=== PATIENT | female | born 1945 | race Caucasian/White ===

== ENCOUNTER 2021-01-09 08:22 | Inpatient (IN) | payer MEDICARE, SELFPAY ==
[2021-01-09] VITALS (23 sets, daily range): BP systolic 134–161; BP diastolic 80–122; PULSE 93–147; RESP 15–28; TEMP 36.1–36.8; O2SAT 94–99; BMI 28.7
--- NOTE | 2021-01-09 | ECHOL_ITS ---
Patient Info Name: Aster De Oliveira Age: 75 years : 1945 Gender: Female Ht: 66 in Wt: 177 lbs BSA: 1.95 m2 HR: 108 bpm BP: 145 / 96 mmHg Heart Rhythm: Atrial Flutter Technical Quality: Good Exam Date: 01/09/2021 4:39 PM Exam Location: [facility] Pulmonary Exam Room: 211 Patient Status: Inpatient Admit Date: 01/09/2021 Staff Ordering Physician: Vladislav Vázquez MD Certified Fraud Examiner: Lisa Simmons RDCS Attending Provider: Lisandro Fulton MD Referring Physician: Gurpreet CALLOWAY; Exam Type: CA echo limited Study Info Indications - ATRIAL FLUTTER Limited two-dimensional transthoracic echocardiogram is performed. Summary 1. Left ventricular chamber dimension is mildly enlarged. 2. Left ventricular systolic function is mildly reduced, estimated at 45-50%. 3. There is mildly increased left ventricular wall thickness. 4. Left atrial chamber dimension is severely enlarged. 5. Right atrial chamber dimension is mildly enlarged. 6. Doppler was not ordered or performed in this study but is recommended. Left Ventricle Left ventricular chamber dimension is mildly enlarged. Left ventricular systolic function is mildly reduced, estimated at 45-50%. There is mildly increased left ventricular wall thickness. Right Ventricle Right ventricular chamber dimension is normal. Right ventricular systolic function is normal. Left Atria Left atrial chamber dimension is severely enlarged. Right Atria Right atrial chamber dimension is mildly enlarged. Aortic Valve The aortic valve is not well visualized. Pulmonic Valve The pulmonic valve is not well visualized. Mitral Valve The mitral valve has thickened leaflets. Tricuspid Valve The tricuspid valve leaflets are normal. Other Findings Doppler was not ordered or performed in this study but is recommended. Pericardium/Pleural The pericardium appears normal. There is no pericardial effusion. Inferior Vena Cava Dilated inferior vena cava with <50% collapse upon inspiration consistent with elevated right atrial pressure, 15 mmHg. Aorta The aortic root size at the sinus of Valsalva is normal. Tricuspid Valve Name Value Normal Estimated PAP/RSVP RA Pressure 15 mmHg <=5 Ventricles Name Value Normal LV Dimensions 2D/MM IVS Diastolic Thickness (2D) 1.1 cm 0.6-1.0 LVID Diastole (2D) 5.0 cm 3.8-5.2 LVIW Diastolic Thickness (2D) 1.0 cm 0.6-0.9 LVID Systole (2D) 3.4 cm 2.2-3.5 LV Mass (2D Cubed) 189.52 g 67.00-162.00 LV Mass Index (2D Cubed) 97 g/m2 43-95 Relative Wall Thickness (2D) 0.38 LV Fractional Shortening/Ejection Fraction 2D/MM LV Fractional Shortening (2D) 33 % 27-45 LV EF (2D Shar)
--- NOTE | ~2021-01-09 | CT_ITS ---
EXAMINATION: CTA chest PE protocol DATE: 01/10/2021 14:27 CDT INDICATION: Severe dyspnea with exertion TECHNIQUE: Computed tomographic angiography (CTA) of the chest was performed with 100 mL Omnipaque-35 0 intravenous contrast. The dose-length product was 340.81 mGy-cm. Maximum intensity projection 3D-re constructions of the aorta and other arteries were constructed by the technologist on a separate work station. Automated exposure control and iterative reconstruction technique were employed. COMPARISON: None. FINDINGS: Study is technically adequate without evidence for pulmonary embolism. Cardiomegaly. Enlarg ed pulmonary arteries, compatible with pulmonary hypertension. Moderate bilateral pleural effusions. There is hazy diffuse bilateral groundglass opacification which may represent edema or pneumonia. No thoracic lymphadenopathy. No significant pericardial effusion. The upper abdomen is unremarkable. No pneumothorax. IMPRESSION: 1. Hazy diffuse bilateral groundglass opacification which may represent edema or pneumonia. 2: Moderate bilateral pleural effusions. Reviewed, dictated and finalized at location A. IMPRESSION: 1. Hazy diffuse bilateral groundglass opacification which may represent edema o r pneumonia. 2: Moderate bilateral pleural effusions.
--- NOTE | ~2021-01-09 | XR_ITS ---
EXAMINATION: XR chest 2V DATE: 01/09/2021 08:51 INDICATION: Shortness of breath, tachycardia TECHNIQUE: AP and lateral views of the chest are obtained. COMPARISON: 11/12/2012 FINDINGS: There are small pleural effusions. Minimal opacities are present in the lung bases. No pneu mothorax is identified. The cardiomediastinal silhouette is normal. There is mild thoracic spondylosi s. IMPRESSION: 1. Small pleural effusions. 2. Minimal bibasilar airspace opacity, consistent with atelectasis versus pneumonia. Reviewed, dictated and finalized at location A. IMPRESSION: 1. Small pleural effusions. 2. Minimal bibasilar airspace opacity, consistent with atelectasis versus pneum onia.
--- NOTE | 2021-01-09 08:31 | ECG_ITS ---
Measurements Intervals [place] Rate: 150 P: CA: 0 QRS: 12 QRSD: 93 T: 31 QT: 290 QTc: 459 Interpretive Statements ATRIAL FLUTTER/TACHYCARDIA WITH RAPID VENTRICULAR RESPONSE BASELINE WANDER- I, II, III ABNORMAL ECG Electronically Signed On 01-09-2021 8:39:12 CDT by Emerson Bravo D.O.
[2021-01-09] MEDS: ASPIRIN 81 MG CHEWABLE TABLET 324 MG PO (08:38)
[2021-01-09] MEDS: dilTIAZem HCl INJ 25 MG/5 ML VIAL 10 MG IV PUSH (08:38)
[2021-01-09 08:51] LABS: Basophils Percent Auto 0.6 % (0.2-1.2); Eosinophils Absolute Auto 0.1 K/mm3 (0-0.3); Eosinophils Percent Auto 1.2 % (0-4.4); Hematocrit 41.8 % (37.0-47.0); Hemoglobin 14.3 g/dL (12.0-15.0); Immature Granulocyte Absolute 0.01 K/mm3 (0.00-0.031); Immature Granulocyte Percent A 0.2 % (0-0.5); Lymphocytes Absolute Auto 1.61 K/mm3 (0.9-3.2); Lymphocytes Percent Auto 31.8 % (18.3-44.2); Mean Corpuscular HGB Conc 34.2 g/dl (32-36); Mean Corpuscular Volume 99.3 fl (80-100); Monocytes Absolute Auto 0.4 K/mm3 (0.1-0.6); Monocytes Percent Auto 8.1 % (2.6-8.5); Neutrophils Percent Auto 58.1 % (45.5-73.1); Platelet Count Result 205 k/mm3 (150-375); Red Blood Count 4.21 M/mm3 (4.2-5.4); Red Cell Distribution Width 13.1 % (11.5-14.5); White Blood Count 5.1 K/mm3 (4.5-10.0)
[2021-01-09 09:00] LABS: INR 0.9; Prothrombin Time 12.2 Seconds (11.1-14.7)
[2021-01-09 09:01] LABS: Partial Thromboplastin Time 25.7 SECONDS (22.3-36.8)
[2021-01-09 09:20] LABS: Anion Gap 6 mmol/L (8-16); Blood Urea Nitrogen 18 mg/dL (7-17); Calcium 9.5 mg/dL (8.4-10.2); Carbon Dioxide 30 mmol/L (22-30); Chloride 102 mmol/L (98-107); Estimated CRCL calculation 54 ml/min; Estimated Glomerular Filt Rate > 60; Glucose 113 mg/dL (65-110); Potassium 4.4 mmol/L (3.4-5.0); Sodium 138 mmol/L (137-145)
[2021-01-09 09:33] LABS: Troponin I < 0.012 ng/mL (0.000-0.034)
--- NOTE | 2021-01-09 10:02 | PC.NURSE ---
Dr. Collier ordered dilt drip and d/c drip d/t p HR 100-110s,
--- NOTE | 2021-01-09 10:17 | ED.SOB ---
HPI - SOB/Dyspnea General Chief Complaint: Shortness of Breath/Dyspnea Stated Complaint: irregular heart beat, sob Time Seen by Provider: 01/09/21 08:30 Source: patient History of Present Illness HPI Narrative: Patient reports not feeling well for the past 1 to 2 weeks. Reports she got her flu vaccine around that time intact up to a immunization reaction. Symptoms got progressively worse or more severe last night so she checked her heart rate noticed in the 140s. She attempted to rest at home checked her heart rate again this morning and it is in the 160s. She was concerned and came to the ER for evaluation. Reports she has been experiencing shortness of breath and fatigue for the past 2 weeks. She denies fevers, cough, chest pain or abdominal pain. She denies any nausea or vomiting. Reports she was concerned that she has A. fib. She does not carry a diagnosis of atrial fibrillation. Related Data Home Medications Medication Instructions Recorded Confirmed Daily Probiotic 1 cap PO DAILY 01/09/21 01/09/21 atorvastatin 20 mg PO DAILY 01/09/21 01/09/21 coenzyme Q10 [CoQ-10] 100 mg PO DAILY 01/09/21 01/09/21 escitalopram oxalate [Lexapro] 10 mg PO DAILY 01/09/21 01/09/21 esomeprazole magnesium [Nexium 20 mg PO DAILY 01/09/21 01/09/21 24HR] triamterene-hydrochlorothiazid 1 cap PO DAILY 01/09/21 01/09/21 Allergies Allergy/AdvReac Type Severity Reaction Status Date / Time No Known Allergies Allergy Unknown Verified 01/09/21 15:21 Review of Systems Review of Systems: CONSTITUTIONAL: Denies fever, chills, or sweats. EYES: Denies visual changes, redness, or discharge. ENT: Denies rhinorrhea, congestion, sore throat, or otalgia. CARDIOVASCULAR: Denies chest pain, palpitations, or edema. RESPIRATORY: Denies cough GASTROINTESTINAL: Denies abdominal pain, nausea, vomiting, or diarrhea. GENITOURINARY: Denies dysuria or hematuria. SKIN: Denies rash or itching. MUSCULOSKELETAL: Denies back pain, joint pain, or myalgia. NEUROLOGIC: Denies headache, numbness, dizziness, or weakness. PSYCHIATRIC: Denies anxiety or depression. All systems reviewed & are unremarkable except as noted in HPI and below PMFSH Social History Social History (Updated 01/09/21 @ 10:19 by Coleman Collier MD) Smoking packs per day: 1 Smoking cigarettes per day: 20.0 Years smoked: 20 Smoking pack-years: 20.00 Smoking status: Former smoker Tobacco type: cigarettes Alcohol intake: current Drinks per week: 7 Substance use: never Spiritual care concerns: No Exam Narrative: GENERAL: Well-appearing, well-nourished, and in no acute distress. HEAD: Normocephalic, atraumatic. EYES: PERRLA and EOMI. ENT: Nares clear, no rhinorrhea or epistaxis. Mucous membranes moist. NECK: Supple. No masses. No JVD CHEST: Clear to auscultation. No respiratory distress. No wheezes rales or rhonchi HEART: Regular tachycardia. No murmur heard. Diminished peripheral pulses ABDOMEN: Soft, nontender, nondistended, normal active bowel sounds. EXTREMITIES: Normal range of motion. No edema. SKIN: Warm, dry, no rash. NEURO: No focal deficits. Alert and oriented x3. PSYCH: Normal mood and affect. Course Reevaluation(s) Reevaluation #1: Patient heart rate improved after diltiazem. Discussed with hospitalist and cardiology patient will be admitted for new onset A. fib patient is comfortable with inpatient plan. Date: 01/09/21 Time: 10:19 Vital Signs Vital signs: Vital Signs Pulse Rate 143 H 01/09/21 08:27 Respiratory Rate 20 01/09/21 08:27 Blood Pressure 161/122 H 01/09/21 08:27 Pulse Oximetry 99 01/09/21 08:27 Temperature 36.1 C L 01/09/21 17:20 Pulse Rate 147 H 01/09/21 17:20 Respiratory Rate 22 H 01/09/21 17:20 Blood Pressure 161/97 H 01/09/21 17:20 Pulse Oximetry 94 01/09/21 17:20 MDM - SOB/Dyspnea MDM Narrative Medical decision making narrative: Patient presents with generalized fatigue and shortness of breath. Pat
[2021-01-09] MEDS: SODIUM CHLORIDE 0.9% IV 1,000 ML 125 ML IV CONT ×2 (10:49→19:31)
--- NOTE | 2021-01-09 11:42 | PC.NURSE ---
Pt transported with normal saline fluids at 125
[2021-01-09 12:22] LABS: Troponin I < 0.012 ng/mL (0.000-0.034)
[2021-01-09] MEDS: ENOXAPARIN 40 MG/0.4 ML SYRINGE SUB-Q (14:22)
[2021-01-09] MEDS: dilTIAZem HCL 30 MG TABLET PO (14:22)
--- NOTE | 2021-01-09 14:40 | ADMGEN ---
This patient, Aster De Oliveira, was admitted to IMU Room 211-01 on 01/09/21 at 1140. Patient/family oriented to hospital policies and general routines including ID bracelet, bed and alarms, visiting hours, pain management, procedures, bathroom and other care routines, personal items, smoking policy, room service/diet, and visiting hours. Information on how to activate the Rapid Response Team has been discussed. Patient/Family are encouraged to report perceived risks to care and to ask questions if they do not understand what they are told or what they should do.
[2021-01-09 15:18] LABS: Troponin I < 0.012 ng/mL (0.000-0.034)
--- NOTE | 2021-01-09 15:26 | PM.CNCAR ---
Assessment and Plan Additional Plan 75-year-old lady with: Atrial flutter with rapid ventricular response she gives a good history of the onset of this arrhythmia between 2 and 3 weeks ago. Obviously she is hemodynamically stable despite the atrial tachyarrhythmia. Reports a history of aortic valve regurgitation which sounds like is mild not of any great concern is actively being followed by her physician at [place]. She has background also of hypertension and apparently some mild dyslipidemia by her understanding. At this time I would recommend: Start metoprolol for rate control Start Xarelto for systemic anticoagulation Obtain an echocardiogram to assess the structural basis of this especially with her aortic valve insufficiency. Her AI is not audible on exam at this time Further recommendations to be pending her response to treatment and review of her echocardiogram. I would hope we can bring her rate under control and allow her to be discharged with plans to conduct a outpatient cardioversion after a sufficient time of systemic anticoagulation. Vladislav Vázquez MD [facility] History of Present Illness History of Present Illness Consult date/time: 01/09/21 15:26 Reason For Visit: Afib with RVR Narrative: This is a 75-year-old woman that I am seeing this afternoon at the request of the hospitalist because of atrial flutter with rapid ventricular response. She does not have any history of atrial arrhythmias like this in the past she says that she became symptomatic with this between 2 and 3 weeks ago. She lives on her own in her own home very relatively healthy active lady who noticed that she was suddenly more tachycardic than she is used to noticing. 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 She otherwise did not feel too poorly other than some mild WILDER. Over the last couple of weeks the shortness of breath became somewhat more noticeable and problematic so finally this morning she came into the emergency room where she was noted to be in atrial flutter with rapid ventricular response. She was given a dose of diltiazem intravenously placed on a dose of short-acting diltiazem and given a dose of Lovenox at a subtherapeutic dosage from what I can see. She is asymptomatic at this point supine in bed visiting with family and appears to be in good spirits she offers no other complaints. Cardiac tolbert she states she is known to have some aortic valve regurgitation. Her primary care physician is at [place] and a number of years ago she was referred to 1 of the hose seamer there because of modest aortic regurgitation. She states that they are in a pattern of doing a stress echocardiogram every 2-3 years to evaluate her valve disease and left ventricle to make sure that she does not require aortic valve surgery. She thinks the last stress test was done a couple of years ago but of course she can not remember the date of that specifically at the time of this conversation. She otherwise has a history of hypertension and mild dyslipidemia she does not smoke she quit smoking years ago. 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 As stated above she is her 3 years ago she lives alone in her own home and maintains her own home in leaves the normally active lifestyle. Review of Systems Constitutional: Constitutional: Reports no additional constitutional complaints Eyes: Eyes: Reports no additional eye complaints ENT: Reports system reviewed and no additional complaints, except as documented Cardiovascular: Cardiovascular: Reports as per HPI and Reports palpitations Respiratory: Respiratory: Reports dyspnea on exertion Gastrointestinal: Gastrointestinal: Reports no additional gastrointestinal complaints Musculoskeletal: Musculoskeletal: Reports no additional musculoskeletal complaints Integumentary/Breasts: Skin/Breast:
--- NOTE | 2021-01-09 18:30 | PM.IMHP ---
H&P: HPI History of Present Illness Date/Time: 01/09/21 18:30 Chief Complaint: Shortness of breath, palpitations. Narrative: This is a very pleasant 75-year-old female with hypertension, hyperlipidemia, mild aortic regurgitation noted on previous echocardiogram, and GERD who presented to the emergency department earlier this morning via private vehicle from home for evaluation of shortness of breath and palpitations. For the past 2 to 3 weeks she has been more fatigued than usual, especially with exertion. In fact yesterday evening she became quite short of breath when walking to her car from a restaurant where she was having dinner. This is unusual for her as she is very active and frequently exercises. She has a pulse oximeter at home and she reports that her SpO2 was 96% on room air last evening however she noticed that her heart rate was irregular and at 1 point did jumped to the 170s. She goes on to say that she has had intermittent ?quivering? in her chest over the past several weeks, and she notices it more at nighttime. On arrival to the emergency department she was found to be in atrial flutter with rapid ventricular response and she is being admitted in this setting. She has no prior history of cardiac dysrhythmia. She has no history of obstructive sleep apnea and she denies orthopnea, PND, and hypersomnolence however she does snore heavily and has on occasion woken herself from sleep due to snoring. She drinks perhaps 2 glasses of wine a night and up to 2 cups of half caffeinated coffee throughout the day. She has not been started on any new medications recently. She has no history of thyroid disease. Review of Systems Review of Systems: Twelve systems were reviewed. No fever, chills, or sweats. No recent cold or flu symptoms. She is fully vaccinated against COVID-19 and received her booster as well as her flu vaccination within the last several weeks. No exertional chest pain. No syncope or near syncope. She denies nausea and vomiting. Except as documented, all other systems were reviewed and are negative. [facility] Past Medical History Medical History (Updated 01/09/21 @ 21:06 by Kenyetta Hopper PA-C) Aortic valve regurgitation Depression Gastroesophageal reflux disease Glaucoma Hyperlipidemia Hypertension Surgical History Surgical History (Updated 01/09/21 @ 20:56 by Kenyetta Hopper PA-C) History of cataract extraction History of dilation and curettage Family History Family History (Updated 01/09/21 @ 20:57 by Kenyetta Hopper PA-C) Mother Pancreatic cancer Insulin dependent diabetes mellitus Father Coronary artery disease Sibling Coronary artery disease Sibling Atrial fibrillation Social History Social History (Updated 01/09/21 @ 20:58 by Kenyetta Hopper PA-C) Social History: Surrogate decision maker: Akira De Oliveira, donna. Code status: Full code. Smoking packs per day: 1 Smoking cigarettes per day: 20.0 Years smoked: 20 Smoking pack-years: 20.00 Smoking status: Former smoker Tobacco type: cigarettes Alcohol intake: current Drinks per week: 7 Alcohol use details: 1 to 2 glasses of wine in the evenings. Substance use: never Additional living arrangements comments: The patient lives in her own home in [place]. She has a dog at home. One adult son. 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 Meds Home Medications and Allergies Home Medications Medication Instructions Recorded Confirmed Type Daily Probiotic 1 cap PO DAILY 01/09/21 01/09/21 History atorvastatin 20 mg PO DAILY 01/09/21 01/09/21 History coenzyme Q10 [CoQ-10] 100 mg PO DAILY 01/09/21 01/09/21 History escitalopram oxalate [Lexapro] 10 mg PO DAILY 01/09/21 01/09/21 History esomeprazole magnesium [Nexium 20 mg PO DAILY 01/09/21 01/09/21 History 24HR] triamterene-hydrochlorothiazid 1 cap PO DAILY 01/09/21 01/09/21 History Allergies Allergy/AdvReac Type
[2021-01-09] MEDS: METOPROLOL TARTRATE 50 MG TAB PO (20:06)
[2021-01-10] VITALS (29 sets, daily range): BP systolic 127–158; BP diastolic 69–116; PULSE 57–150; RESP 14–22; TEMP 36–36.7; O2SAT 90–96
--- NOTE | 2021-01-10 | ECHO_ITS ---
Patient Info Name: Aster De Oliveira Age: 75 years : 1945 Gender: Female Ht: 66 in Wt: 178 lbs BSA: 1.96 m2 HR: 115 bpm BP: 149 / 92 mmHg Heart Rhythm: Atrial Fibrillation, Tachycardia Technical Quality: Fair Exam Date: 01/10/2021 1:17 PM Exam Location: [facility] Card Pulmonary Patient Status: Inpatient Admit Date: 01/09/2021 Staff Ordering Physician: Lexii Trevino MD Sample Display Preparer: Judi Perez RDCS Attending Provider: Komal Dietrich PA-C Referring Physician: Uriel HOLDER; Exam Type: CA echo doppler color flow Study Info Indications 150.9 - Summary 1. Mild LVH. Mild global left ventricular dysfunction, EF estimated to be 45-50%. LV size measured on previous study. 2. There is moderate to severe aortic valve regurgitation. Trileaflet valve. 3. There is moderately severe to severe central mitral valve regurgitation. PISA was 0.7 cm. 4. There is mild tricuspid valve regurgitation. 5. Left atrial chamber dimension is severely enlarged. 6. Right atrial chamber dimension is mildly enlarged. 7. Dilated inferior vena cava with >50% collapse upon inspiration consistent with elevated right atrial pressure, Empty. 8. Limited Echo to evaluate valves; please see prior study for additional detail. 9. Challenging Echo as the patient was in rapid atrial fibrillation. Left Ventricle Left ventricular chamber dimension is normal. Left ventricular systolic function is mildly reduced, estimated at 45-50%. There is mildly increased left ventricular wall thickness. Left ventricular septal wall motion is normal. The left ventricular diastolic function is normal. Right Ventricle Right ventricular chamber dimension is normal. Right ventricular systolic function is normal. Left Atria Left atrial chamber dimension is severely enlarged. Right Atria Right atrial chamber dimension is mildly enlarged. Aortic Valve The aortic valve is trileaflet. There is no aortic valve sclerosis. There is no aortic valve stenosis. There is moderate to severe aortic valve regurgitation. Trileaflet valve. Pulmonic Valve The pulmonic valve is normal. There is no pulmonic valve stenosis. There is trace pulmonic regurgitation. Mitral Valve The mitral valve has normal leaflets. There is no mitral valve stenosis. There is moderately severe to severe central mitral valve regurgitation. PISA was 0.7 cm. Tricuspid Valve The tricuspid valve leaflets are normal. There is no significant tricuspid valve stenosis. There is mild tricuspid valve regurgitation. No pulmonary hypertension, estimated pulmonary arterial systolic pressure is Empty. Pericardium/Pleural The pericardium appears normal. There is no pericardial effusion. Inferior Vena Cava Dilated inferior vena cava with >50% collapse upon inspiration consistent with elevated right atrial pressure, Empty. Aorta The aortic root size at the sinus of Valsalva is normal. The prox ascending aorta size is normal. Left Ventricular Outflow Tract Name Value Normal LVOT 2D LVOT Diameter 2.3 cm LVOT Doppler LVOT Peak Gradient 2 mmHg
[2021-01-10 03:05] LABS: Glucose Point of Care 181 mg/dl (65-105)
--- NOTE | 2021-01-10 03:21 | ECG_ITS ---
Measurements Intervals [place] Rate: 109 P: [place]: 0 QRS: 25 QRSD: 100 T: -16 QT: 352 QTc: 475 Interpretive Statements ATRIAL FIBRILLATION WITH RAPID VENTRICULAR RESPONSE DELAYED PRECORDIAL R/S TRANSITION NONSPECIFIC T-WAVE ABNORMALITY- ANTEROLAT/INF LEADS BASELINE ARTIFACT- I, II, III, AVR, AVL, AVF, V1, V3-V6 ABNORMAL ECG Electronically Signed On 01-10-2021 7:45:06 CDT by Emerson Bravo D.O.
[2021-01-10] MEDS: LEVALBUTEROL NEB 1.25 MG/3 ML 0.63 MG INHALATION (03:22)
[2021-01-10] MEDS: SODIUM CHLORIDE 0.9% IV 1,000 ML 20 ML IV CONT (04:39)
--- NOTE | 2021-01-10 04:44 | PCRCNOTE ---
Therapist talked to pt prior to starting apnea link to make sure patient fully understand what it was and that i would be back to set it up before they went to bed. Pt agreed and wanted the study. Pt did well putting it on and understood what it did. Therapist checked on pt not long after putting it on and pt was doing fine. Pt was sleeping. Nurse called wanting a stat treatment on pt and the pt wanted the link off. They were having an episode and was SOB. The device was on for over 4 hours. Results are scaned and in chart. Pt stated they will not do it again it felt like something heavy was on their chest. If this wasnt enough they stated not to try again because they didnt want it.
[2021-01-10] MEDS: METOPROLOL TARTRATE 50 MG TAB PO ×2 (08:14→21:16)
[2021-01-10] MEDS: ACIDOPHILUS/BULGARICUS CHEWABLE TABLET 1 TABLET PO (08:15)
[2021-01-10] MEDS: TRIAMTERENE 37.5 MG/HCTZ 25 MG (MAXZIDE) TABLET 1 TAB PO (08:15)
[2021-01-10] MEDS: PANTOPRAZOLE 40 MG TABLET PO (08:15)
[2021-01-10] MEDS: ESCITALOPRAM OXALATE 10 MG TABLET PO (08:15)
[2021-01-10] MEDS: ATORVASTATIN 20 MG TABLET PO (08:15)
--- NOTE | 2021-01-10 09:26 | ECG_ITS ---
Measurements Intervals [place] Rate: 96 P: [place]: 0 QRS: 21 QRSD: 114 T: -43 QT: 394 QTc: 500 Interpretive Statements ATRIAL FIBRILLATION LOW QRS VOLTAGE IN LIMB LEADS BORDERLINE T WAVE ABNORMALITY- ANTERIOR LEADS BASELINE ARTIFACT- I, II, V4 ABNORMAL ECG Electronically Signed On 01-10-2021 15:51:20 CDT by Emerson Bravo D.O.
--- NOTE | 2021-01-10 09:34 | PM.IMPN ---
Progress Note: A&P Assessment and Plan (1) WILDER (dyspnea on exertion): Code(s): R06.00 - Dyspnea, unspecified Status: Acute Assessment and Plan: Patient's main complaint is dyspnea on exertion. She barely made it to the bathroom and back without feeling like she was severely short of breath and passing out yesterday. She has had a cough for a couple weeks that is getting worse -differential includes CHF exacerbation, PE, COPD, pneumonia, a flutter, or a component of MICHAEL -patient has tight breath sounds, consider possible COPD as a cause although she has never been diagnosed. Schedule Xopenex. Metoprolol worsening? -she has no history of blood clots -will order CTA of the chest, EKG, BNP and troponins -continue oxygen to keep sats greater than 90 -apnea link shows significant evidence for possible MICHAEL. She will need officially tested outpatient -consider pulmonology consult and abg depending on above and if she does not improve (2) New onset atrial fibrillation: Code(s): I48.91 - Unspecified atrial fibrillation Status: Acute Assessment and Plan: Patient has been started on metoprolol and Xarelto for new onset atrial fibrillation. Current rate 109 -echo shows an EF of 45-50% unclear if she has ever had any systolic dysfunction in the past -she has had a stress test but it was about 3 years ago. May consider further workup either inpatient or outpatient depending on above findings and cardiology's recommendations (3) Systolic dysfunction: Code(s): I51.9 - Heart disease, unspecified Status: Acute Assessment and Plan: echo shows an EF of 45-50% unclear if she has ever had any systolic dysfunction in the past -As above (4) Hypertension: Code(s): I10 - Essential (primary) hypertension Status: Acute Assessment and Plan: Last blood pressure 158/116 -continue hydrochlorothiazide and metoprolol -if she continues to run high, may consider losartan -repeat blood pressure (5) Hyperlipidemia: Code(s): E78.5 - Hyperlipidemia, unspecified Status: Acute Assessment and Plan: Continue atorvastatin (6) Aortic valve regurgitation: Code(s): I35.1 - Nonrheumatic aortic (valve) insufficiency Status: Acute Assessment and Plan: Patient states she has history of this. Aortic valve is not well visualized with the echo Time Spent With Patient Time with patient: 25 - 35 minutes Subjective Date/time seen: 01/10/21 09:34 Interval history: Pt is a 75-year-old female here for palpitations and dyspnea on exertion. Patient was seen today and states she feels awful. She says that she is increasingly more short of breath and is unable to even walk to the bathroom and back without feeling very short of breath to where she thinks she is going to pass out. This is not like her as she just took a trip to [place] last month and was able to walk around without issue. She says her chest feels very tight during this time. She does not think it is her heart and thinks it is more her lungs. She does have pain with inspiration but it is more of a tightness and not a stabbing like pain. She has no fluttering or palpitations like she had yesterday. No arm or jaw pain. No shortness of breath with laying flat. She has a wet cough that she cannot get any sputum production from. She mentions that it is the breathing treatment did seem to help. She has a history of multiple stress tests in the past with the last being maybe 3 years ago. She has aortic valve regurgitation but no other heart history that she knows of. She has never had an MT or blood clot. She quit smoking in 1995 and does not take any estrogen products. She did have recent travel but fluid there and walked around the city and was not an active at any time. She has no recent history of leg swelling or hx of blood clots. She has chronic diarrhea that is unchanged.
[2021-01-10 09:59] LABS: Hematocrit 39.8 % (37.0-47.0); Hemoglobin 13.5 g/dL (12.0-15.0); Mean Corpuscular HGB Conc 33.9 g/dl (32-36); Mean Corpuscular Hemoglobin 34.4 pg (26-34); Mean Corpuscular Volume 101.3 fl (80-100); Mean Platelet Volume 10.7 fl (7.4-10.4); Platelet Count Result 192 k/mm3 (150-375); Red Blood Count 3.93 M/mm3 (4.2-5.4); Red Cell Distribution Width 13.2 % (11.5-14.5); White Blood Count 5.6 K/mm3 (4.5-10.0)
[2021-01-10 10:10] LABS: Alanine Aminotransferase 97 U/L (4-35); Albumin Level 3.7 g/dL (3.5-5.1); Alkaline Phosphatase 78 U/L (38-126); Anion Gap 8 mmol/L (8-16); Aspartate Amino Transferase 107 U/L (14-36); Bilirubin,Total 1.7 mg/dL (0.2-1.3); Blood Urea Nitrogen 18 mg/dL (7-17); Calcium 8.6 mg/dL (8.4-10.2); Carbon Dioxide 28 mmol/L (22-30); Chloride 100 mmol/L (98-107); Estimated CRCL calculation 72 ml/min; Estimated Glomerular Filt Rate > 60; Glucose 184 mg/dL (65-110); Sodium 136 mmol/L (137-145)
[2021-01-10 10:22] LABS: NT Pro B Type Natriuretic Pept 1860 pg/mL (5-100); Troponin I < 0.012 ng/mL (0.000-0.034)
--- NOTE | 2021-01-10 11:33 | PM.PNCARD ---
Progress Note: A&P Assessment and Plan (1) New onset atrial fibrillation: Code(s): I48.91 - Unspecified atrial fibrillation Status: Acute Assessment and Plan: Patient presents with new onset AFib RVR, heart rate better on metoprolol. (2) Acute systolic CHF (congestive heart failure): Code(s): I50.21 - Acute systolic (congestive) heart failure Status: Acute Assessment and Plan: Short of breath, diffuse rales, mildly elevated BNP, small pleural effusions all suggest mild CHF. Will start Lasix 40 mg IV push b.i.d.. Starting Xopenex as well. CTA is pending to rule out PE etc.. Daily BMP (3) Cardiomyopathy: Code(s): I42.9 - Cardiomyopathy, unspecified Status: Acute Assessment and Plan: Has CHF with mildly reduced ejection fraction, 45-50%. Perhaps a tachycardia induced cardiomyopathy. Add lisinopril 5 mg daily. (4) Aortic valve regurgitation: Code(s): I35.1 - Nonrheumatic aortic (valve) insufficiency Status: Acute Assessment and Plan: History of aortic insufficiency, not audible, but not also evaluated by echo. Add Doppler to echo. (5) Hypertension: Code(s): I10 - Essential (primary) hypertension Status: Acute Assessment and Plan: Blood pressure mildly elevated. Subjective Date/time seen: 01/10/21 11:33 Interval history: Follow-up for recent onset of persistent atrial flutter, starting 2-3 weeks ago. History of aortic insufficiency, hypertension. Date of service 01/10/2021: Patient feels worse today, more short of breath. She had a particularly bad spell of shortness of breath and diaphoresis around 3:00 a.m. this morning but the EKG as below showed no ischemic changes. She is worried she might have COVID, even though she has received her vaccinations and booster. Metoprolol 50 mg b.i.d. started yesterday as well as Xarelto 20 mg daily. On oxygen intermittently. Telemetry shows heart rate generally 90-100. Echo showed mild LV dysfunction, EF 45-50%. Review of Systems Constitutional: Constitutional: Reports fatigue and Reports weakness Eyes: Eyes: Reports no additional eye complaints ENT: Denies epistaxis Cardiovascular: Cardiovascular: Denies chest pain, Denies pedal edema and Denies leg edema Respiratory: Respiratory: Reports cough, Reports dyspnea and Reports dyspnea on exertion Gastrointestinal: Gastrointestinal: Denies abdominal pain Genitourinary: Genitourinary: Denies hematuria Musculoskeletal: Musculoskeletal: Reports no additional musculoskeletal complaints Integumentary/Breasts: Skin/Breast: Denies rash Neurologic: Reports system reviewed and no additional complaints, except as documented Psychiatric: Psychiatric: Reports no additional psychiatric complaints Exam Narrative: Older female with son at bedside, on O2 Const: General: no acute distress and uncomfortable (Looks worried) HENMT: General nose exam: no epistaxis Eyes: EOM: EOMs intact bilaterally Neck: Neck: supple Resp: Effort & Inspection: normal respiratory effort Auscultation: rales and wheezes Other: Rales half up bilaterally, scattered expiratory wheezes Cardio: Rate: regular rate Rhythm: abnormal rhythm irregularly irregular Heart sounds: no murmurs GI: GI Palp: Yes Soft to palpation and No Tenderness to palpation present (GI) Skin: General skin exam: normal color Rashes: no rashes noted Wounds: no wounds noted Neuro: Cognition (Neuro): normal cognition Speech: normal speech Extrem: General: no edema and no pedal edema Psych: Mental Status: mental status grossly normal Affect: normal affect Objective Data Vital Signs Vital Signs: Vital Signs - 24 hr 01/09/21 11:40 01/09/21 12:00 01/09/21 14:00 Temperature 97.5 F L Pulse Rate 111 H 106 H 131 H Respiratory Rate 16 Blood Pressure 145/96 H Pulse Oximetry 98 01/09/21 16:00 01/09/21 17:20 01/09/21 18:00 Temperature 9
[2021-01-10] MEDS: FUROSEMIDE INJ 40 MG/4 ML VIAL IV PUSH ×2 (12:33→17:54)
--- NOTE | 2021-01-10 13:41 | PCRCNOTE ---
Window of time for administration has passed. See next scheduled administration.
[2021-01-10] MEDS: RIVAROXABAN 20 MG TABLET PO (17:54)
[2021-01-10] MEDS: METOPROLOL TARTRATE INJ 5 MG/5 ML VIAL IV PUSH (19:45)
[2021-01-10] MEDS: DOXYCYCLINE HYCLATE 100 MG TABLET PO (21:16)
[2021-01-11] VITALS (28 sets, daily range): BP systolic 98–140; BP diastolic 68–87; PULSE 77–108; RESP 14–18; TEMP 35.9–36.8; O2SAT 91–97
--- NOTE | 2021-01-11 02:25 | PCRCNOTE ---
Pt requested not to be woken up for her 02:00 xopenex treatment. Pt was advised to let her nurse know if she changed her mind or felt she needed the treatment during the night.
[2021-01-11 04:36] LABS: Hematocrit 40.1 % (37.0-47.0); Hemoglobin 14.1 g/dL (12.0-15.0); Mean Corpuscular HGB Conc 35.2 g/dl (32-36); Mean Corpuscular Hemoglobin 34.3 pg (26-34); Mean Corpuscular Volume 97.6 fl (80-100); Mean Platelet Volume 10.7 fl (7.4-10.4); Platelet Count Result 196 k/mm3 (150-375); Red Blood Count 4.11 M/mm3 (4.2-5.4); Red Cell Distribution Width 12.8 % (11.5-14.5); White Blood Count 5.4 K/mm3 (4.5-10.0)
[2021-01-11 04:50] LABS: Alanine Aminotransferase 95 U/L (4-35); Albumin Level 4.1 g/dL (3.5-5.1); Alkaline Phosphatase 87 U/L (38-126); Anion Gap 9 mmol/L (8-16); Aspartate Amino Transferase 74 U/L (14-36); Blood Urea Nitrogen 17 mg/dL (7-17); Calcium 9.4 mg/dL (8.4-10.2); Carbon Dioxide 31 mmol/L (22-30); Chloride 96 mmol/L (98-107); Estimated CRCL calculation 55 ml/min; Estimated Glomerular Filt Rate > 60; Glucose 111 mg/dL (65-110); Sodium 136 mmol/L (137-145)
[2021-01-11] MEDS: METOPROLOL TARTRATE 50 MG TAB PO ×3 (05:52→22:21)
[2021-01-11] MEDS: POTASSIUM CHLORIDE 20 MEQ TABLET 40 MEQ PO (08:33)
[2021-01-11] MEDS: PANTOPRAZOLE 40 MG TABLET PO (08:33)
[2021-01-11] MEDS: TRIAMTERENE 37.5 MG/HCTZ 25 MG (MAXZIDE) TABLET 1 TAB PO (08:33)
[2021-01-11] MEDS: ATORVASTATIN 20 MG TABLET PO (08:33)
[2021-01-11] MEDS: ACIDOPHILUS/BULGARICUS CHEWABLE TABLET 1 TABLET PO (08:33)
[2021-01-11] MEDS: ESCITALOPRAM OXALATE 10 MG TABLET PO (08:33)
[2021-01-11] MEDS: lisinopriL 5 MG TABLET PO (08:33)
[2021-01-11] MEDS: FUROSEMIDE INJ 40 MG/4 ML VIAL IV PUSH ×2 (08:34→18:04)
--- NOTE | 2021-01-11 08:57 | PM.IMPN ---
Progress Note: A&P Assessment and Plan (1) Acute systolic CHF (congestive heart failure): Code(s): I50.21 - Acute systolic (congestive) heart failure Status: Acute Assessment and Plan: Dyspnea on exertion likely due to acute systolic CHF - patient was started on Lasix therapy yesterday and diuresed 5250 mls but also took in quite a bit so she had a net loss 2740 mls with the Lasix. She had almost immediate improvement with diuresis. - pneumonia seems less likely since she had rapid improvement with the Lasix, no leukocytosis and no fever. abx will be stopped - CTA shows no evidence of PE - continue Lasix therapy - will start weaning oxygen as tolerated. I have asked the RN at bedside to monitor her when she is ambulating once she is off o2 at rest -echo shows an EF of 45-50% unclear if she has ever had any systolic dysfunction in the past -continue lipitor, lisinopril, metoprolol and lasix -cardiology consulted, appreciate their recommendations (2) New onset atrial fibrillation: Code(s): I48.91 - Unspecified atrial fibrillation Status: Acute Assessment and Plan: Patient has been started on metoprolol and Xarelto for new onset atrial fibrillation. Current rate 89 -echo shows an EF of 45-50% unclear if she has ever had any systolic dysfunction in the past -she has had a stress test but it was about 3 years ago. May consider further workup either inpatient or outpatient depending on cardiology's recommendations (3) Hypertension: Code(s): I10 - Essential (primary) hypertension Status: Acute Assessment and Plan: Last blood pressure 140/86 -continue lasix, lisinopril and metoprolol -will stop hctz since she is also on lasix (4) Hyperlipidemia: Code(s): E78.5 - Hyperlipidemia, unspecified Status: Acute Assessment and Plan: Continue atorvastatin (5) Aortic valve regurgitation: Code(s): I35.1 - Nonrheumatic aortic (valve) insufficiency Status: Acute Assessment and Plan: Mod-severe aortic valve regurgitation -continue with cardiology's recommendations (6) Hypokalemia: Code(s): E87.6 - Hypokalemia Status: Acute Assessment and Plan: likely due to Lasix - will give 40 mEq this morning and 20 later this afternoon - recheck BMP in the morning (7) Transaminitis: Code(s): R74.01 - Elevation of levels of liver transaminase levels Status: Acute Assessment and Plan: unclear etiology at this time but it is improving - could be from possible congestion - spoke with the patient states she drinks 2 glasses of wine at night. ALT is greater than AST, I do not suspect this to be the cause - will check hepatitis panel in the morning - patient would like to hold off on the ultrasound today and recheck her labs tomorrow. If they continue to be high, would order the ultrasound tomorrow. She has no pain to palpation to the abdomen and is eating and drinking well Additional Plan Apnea link + for possible sleep apnea. Will need outpt sleep study to confirm. Discussed with pt. Subjective Date/time seen: 01/11/21 08:57 Interval history: Pt is a 75-year-old female here for palpitations and dyspnea on exertion. Patient states she is feeling so much better compared to yesterday and is even walking to the bathroom without oxygen without feeling short of breath. This is a significant improvement from yesterday where she could barely walk to the bathroom without feeling like she was going to pass out because she was so severely out of breath. She has not had any chest pain or palpitations overnight. She has been eating and drinking well. She denies any history of liver problems but states she drinks about 2 glasses of wine a night. no known exposures to hepatitis Exam Narrative: General: Well developed well nourished patient in NAD HEENT: normocephalic, nc o2 applied Neck: baron
--- NOTE | 2021-01-11 09:19 | PM.PNCARD ---
Progress Note: A&P Assessment and Plan (1) New onset atrial fibrillation: Code(s): I48.91 - Unspecified atrial fibrillation Status: Acute Assessment and Plan: Patient presents with new onset AFib RVR, heart rate better on increased dose of metoprolol. Anticoagulated with Xarelto. Plan is an elective cardioversion has an outpatient, although the success may be reduced due to the patient's valve disease. (2) Acute systolic CHF (congestive heart failure): Code(s): I50.21 - Acute systolic (congestive) heart failure Status: Acute Assessment and Plan: Acute systolic failure due to a fib, valvular heart disease and midly reduced EF, improved after starting Lasix 40 mg IV push b.i.d.. Started Xopenex as well. Daily BMP (3) Cardiomyopathy: Code(s): I42.9 - Cardiomyopathy, unspecified Status: Acute Assessment and Plan: Has CHF with mildly reduced ejection fraction, 45-50%. Perhaps a valvular cardiomyopathy aggravated by AFib RVR. Added lisinopril 5 mg daily. (4) Nonrheumatic mitral valve regurgitation: Code(s): I34.0 - Nonrheumatic mitral (valve) insufficiency Status: Acute Assessment and Plan: Was mild in 2017 now moderate severe to severe. I cannot hear the murmur but she is still tachycardic, so difficult auscultatory exam. Hope this improves with control of heart rate and CHF but patient may ultimately be require aortic and mitral valve replacement/repair. If that is the case, pt prefers to go to [facility] as her had LVAD through Dr. Saldaña there. (5) Nonrheumatic aortic (valve) insufficiency: Code(s): I35.1 - Nonrheumatic aortic (valve) insufficiency Status: Acute Assessment and Plan: History of mild aortic insufficiency last checked 2017. Now looks much worse, moderate to severe. Difficult echo due to tachycardia. (6) Hypertension: Code(s): I10 - Essential (primary) hypertension Status: Acute Assessment and Plan: Blood pressure mildly elevated. (7) Hypokalemia: Code(s): E87.6 - Hypokalemia Status: Acute Assessment and Plan: Will add daily potassium while on IV Lasix. (8) Elevated LFTs: Code(s): R79.89 - Other specified abnormal findings of blood chemistry Status: Acute Assessment and Plan: Perhaps due to hepatic congestion from CHF. Repeat LFTs tomorrow Subjective Date/time seen: 01/11/21 09:19 Interval history: Follow-up for recent onset of persistent atrial flutter, starting 2-3 weeks ago. History of aortic insufficiency, hypertension. Date of service 01/10/2021: Patient feels worse today, more short of breath. She had a particularly bad spell of shortness of breath and diaphoresis around 3:00 a.m. this morning but the EKG as below showed no ischemic changes. Metoprolol 50 mg b.i.d. started yesterday as well as Xarelto 20 mg daily. On oxygen intermittently. Telemetry shows heart rate generally 90-100. Echo showed mild LV dysfunction, EF 45-50%. Doppler ordered to evaluate valves. Patient appeared to be in heart failure and started on IV Lasix. Date of service 01/11/2021: Patient is feeling much better with diuresis, able to move around with much improved breathing. Patient was very tachycardic (HR 120-150) yesterday and received IV metoprolol; dose increased to 50 mg q.8 hours. Tele shows HR 80-110 today. Started on furosemide yesterday with very good diuresis. O2 decreased to 2 L nasal cannula. Doppler study to check valves unfortunately showed moderate to severe aortic insufficiency and moderately severe to severe mitral regurgitation. Review of Systems Constitutional: Constitutional: Reports lethargy Eyes: Eyes: Reports no additional eye complaints ENT: Denies epistaxis Cardiovascular: Cardiovascular: Denies chest pain, Denies pedal edema, Denies leg edema, Reports palpitations, Reports dyspnea and Reports dyspn
[2021-01-11] MEDS: POTASSIUM CHLORIDE 20 MEQ TABLET.ER PO (18:04)
[2021-01-12] VITALS (14 sets, daily range): BP systolic 107–120; BP diastolic 68–81; PULSE 80–119; RESP 18–22; TEMP 34.9–36.6; O2SAT 93–98
--- NOTE | 2021-01-12 01:22 | PCRCNOTE ---
Pt requested not to be woken up for 02:00 xopenex treatment. Pt was advised to let nurse know if she changed her mind or felt she needed the treatment.
[2021-01-12 05:11] LABS: Hematocrit 41.9 % (37.0-47.0); Hemoglobin 14.7 g/dL (12.0-15.0); Mean Corpuscular HGB Conc 35.1 g/dl (32-36); Mean Corpuscular Hemoglobin 33.9 pg (26-34); Mean Corpuscular Volume 96.5 fl (80-100); Mean Platelet Volume 10.7 fl (7.4-10.4); Platelet Count Result 223 k/mm3 (150-375); Red Blood Count 4.34 M/mm3 (4.2-5.4); Red Cell Distribution Width 12.6 % (11.5-14.5); White Blood Count 5.4 K/mm3 (4.5-10.0)
[2021-01-12 05:22] LABS: NT Pro B Type Natriuretic Pept 833 pg/mL (5-100)
[2021-01-12 05:37] LABS: Alanine Aminotransferase 91 U/L (4-35); Albumin Level 3.8 g/dL (3.5-5.1); Alkaline Phosphatase 75 U/L (38-126); Anion Gap 8 mmol/L (8-16); Aspartate Amino Transferase 84 U/L (14-36); Bilirubin,Total 1.8 mg/dL (0.2-1.3); Blood Urea Nitrogen 24 mg/dL (7-17); Calcium 9.9 mg/dL (8.4-10.2); Carbon Dioxide 33 mmol/L (22-30); Chloride 94 mmol/L (98-107); Estimated CRCL calculation 49 ml/min; Estimated Glomerular Filt Rate > 60; Glucose 100 mg/dL (65-110); Potassium 4.2 mmol/L (3.4-5.0); Sodium 135 mmol/L (137-145)
[2021-01-12 05:56] LABS: Hepatitis B Surface Antigen Negative (Negative)
[2021-01-12 06:01] LABS: HAV RESULT Negative (Negative); Hepatitis B Core IgM Result Negative (Negative)
[2021-01-12 06:13] LABS: Hepatitis C Virus Antibody Negative (Negative)
[2021-01-12] MEDS: METOPROLOL TARTRATE 50 MG TAB PO ×2 (06:28→13:41)
[2021-01-12] MEDS: PANTOPRAZOLE 40 MG TABLET PO (08:48)
[2021-01-12] MEDS: POTASSIUM CHLORIDE 20 MEQ TABLET.ER PO (08:48)
[2021-01-12] MEDS: ACIDOPHILUS/BULGARICUS CHEWABLE TABLET 1 TABLET PO (08:49)
[2021-01-12] MEDS: lisinopriL 5 MG TABLET PO (08:49)
[2021-01-12] MEDS: ATORVASTATIN 20 MG TABLET PO (08:49)
[2021-01-12] MEDS: ESCITALOPRAM OXALATE 10 MG TABLET PO (08:49)
[2021-01-12] MEDS: FUROSEMIDE INJ 40 MG/4 ML VIAL IV PUSH (08:49)
--- NOTE | 2021-01-12 12:30 | PM.PNCARD ---
Progress Note: A&P Additional Plan 75-year-old lady with: Recent onset atrial fibrillation by history about 2-3 weeks of AFib prior to coming into the hospital. She is now reasonably well with rate control with metoprolol and anticoagulated with Xarelto. Some CHF over the weekend resulted in the need to give her some furosemide. Long discussion with the patient today about her aortic and mitral valve regurgitation. She seems to be stable enough for discharge at this time but I would recommend following up with the valve clinic at [facility] regarding her regurgitant lesions that may require surgical and/or interventional treatment which is of course not available here at [facility]. Her PCP and the remainder of her care have generally been delivered at [facility] and so for consistency I would recommend her cardiac follow-up be at that hospital as well. I will transition her furosemide to oral and assist with getting her referred to the valve Clinic at [facility]. Vladislav Vázquez MD [facility] Subjective Date/time seen: 01/12/21 12:30 Interval history: Follow-up for recent onset of persistent atrial flutter, starting 2-3 weeks ago. History of aortic insufficiency, hypertension. Date of service 01/10/2021: Patient feels worse today, more short of breath. She had a particularly bad spell of shortness of breath and diaphoresis around 3:00 a.m. this morning but the EKG as below showed no ischemic changes. Metoprolol 50 mg b.i.d. started yesterday as well as Xarelto 20 mg daily. On oxygen intermittently. Telemetry shows heart rate generally 90-100. Echo showed mild LV dysfunction, EF 45-50%. Doppler ordered to evaluate valves. Patient appeared to be in heart failure and started on IV Lasix. Date of service 01/11/2021: Patient is feeling much better with diuresis, able to move around with much improved breathing. Patient was very tachycardic (HR 120-150) yesterday and received IV metoprolol; dose increased to 50 mg q.8 hours. Tele shows HR 80-110 today. Started on furosemide yesterday with very good diuresis. O2 decreased to 2 L nasal cannula. Doppler study to check valves unfortunately showed moderate to severe aortic insufficiency and moderately severe to severe mitral regurgitation. Date of service 01/12/2021: Patient is asymptomatic enjoying her lunch no longer short of breath or symptomatic with her arrhythmias or CHF. Long discussion with the patient about her valvular disease which unfortunately by echo appears to be significant involving both aortic and mitral regurgitation. Exam Const: General: comfortable and no acute distress HENMT: Mouth: Yes moist mucous membranes Eyes: Sclera: sclerae normal Pupils: Equal, round and reactive pupils present Neck: Neck: supple and no JVD Resp: Effort & Inspection: normal respiratory effort Auscultation: clear to auscultation bilaterally Cardio: Rate: regular rate Rhythm: regular rhythm GI: GI Palp: Yes Soft to palpation Auscultation: normal bowel sounds Skin: General skin exam: normal color Neuro: Cognition (Neuro): normal cognition Extrem: General: normal to inspection Objective Data Vital Signs Vital Signs: Vital Signs - 24 hr 01/11/21 13:16 01/11/21 14:00 01/11/21 14:39 Temperature Pulse Rate 108 H 88 84 Respiratory Rate 16 Blood Pressure Pulse Oximetry 01/11/21 14:46 01/11/21 15:13 01/11/21 16:00 Temperature 36.7 C Pulse Rate 85 85 Respiratory Rate 16 16 Blood Pressure 113/72 Pulse Oximetry 91 95 01/11/21 18:00 01/11/21 19:51 01/11/21 20:00 Temperature 36.8 C Pulse Rate 107 H 98 89 Respiratory Rate 17 14 Blood Pressure 98/81 L Pulse Oximetry 94 93 01/11/21 20:35 01/11/21 20:42 01/11/21 22:00 Temperature Pulse Rate 93 89 96 Respiratory Rate 14 14 Blood Pressure Pulse Oximetry 93 01/11/21 22:21 01/11/21 23:37 01/12/21 00:00 Temperature 36.8 C Pulse Rate 107 H 86 85 Respiratory Rate 18 18 Blood Pre
--- NOTE | 2021-01-12 14:25 | PM.DS ---
DS: Admitting Diagnosis Discharge Date Date of service 01/12/2021 at 7:30 a.m. Admitting Diagnosis Acute systolic CHF exacerbation DS: Discharge Diagnosis Discharge Diagnosis (1) Acute systolic CHF (congestive heart failure): Code(s): I50.21 - Acute systolic (congestive) heart failure Status: Acute Assessment and Plan: Dyspnea on exertion likely due to acute systolic CHF - patient was started on Lasix therapy yesterday and diuresed 5250 mls but also took in quite a bit so she had a net loss 2740 mls with the Lasix. She had almost immediate improvement with diuresis. - pneumonia seems less likely since she had rapid improvement with the Lasix, no leukocytosis and no fever. abx will be stopped - CTA shows no evidence of PE - continue Lasix therapy - will start weaning oxygen as tolerated. I have asked the RN at bedside to monitor her when she is ambulating once she is off o2 at rest -echo shows an EF of 45-50% unclear if she has ever had any systolic dysfunction in the past -continue lipitor, lisinopril, metoprolol and lasix -cardiology consulted, appreciate their recommendations (2) New onset atrial fibrillation: Code(s): I48.91 - Unspecified atrial fibrillation Status: Acute Assessment and Plan: Patient has been started on metoprolol and Xarelto for new onset atrial fibrillation. Current rate 89 -echo shows an EF of 45-50% unclear if she has ever had any systolic dysfunction in the past -she has had a stress test but it was about 3 years ago. May consider further workup either inpatient or outpatient depending on cardiology's recommendations (3) Hypertension: Code(s): I10 - Essential (primary) hypertension Status: Acute Assessment and Plan: Last blood pressure 140/86 -continue lasix, lisinopril and metoprolol -will stop hctz since she is also on lasix (4) Hyperlipidemia: Code(s): E78.5 - Hyperlipidemia, unspecified Status: Acute Assessment and Plan: Continue atorvastatin (5) Aortic valve regurgitation: Code(s): I35.1 - Nonrheumatic aortic (valve) insufficiency Status: Acute Assessment and Plan: Mod-severe aortic valve regurgitation -continue with cardiology's recommendations (6) Hypokalemia: Code(s): E87.6 - Hypokalemia Status: Acute Assessment and Plan: likely due to Lasix - will give 40 mEq this morning and 20 later this afternoon - recheck BMP in the morning (7) Transaminitis: Code(s): R74.01 - Elevation of levels of liver transaminase levels Status: Acute Assessment and Plan: unclear etiology at this time but it is improving - could be from possible congestion - spoke with the patient states she drinks 2 glasses of wine at night. ALT is greater than AST, I do not suspect this to be the cause - will check hepatitis panel in the morning - patient would like to hold off on the ultrasound today and recheck her labs tomorrow. If they continue to be high, would order the ultrasound tomorrow. She has no pain to palpation to the abdomen and is eating and drinking well DS: Summary Hospital Course Hospital Course: Patient is a 75-year-old female with a past medical history of hypertension, hyperlipidemia, and valve disease who presented to the emergency room for evaluation of shortness of breath palpitations. EKG noted that the patient was then AFib and patient was started on metoprolol and Xarelto which has controlled her AFib with time. She was also noted to be in acute systolic CHF exacerbation. Patient was started on Lasix and diuresed quite nicely. Echo did show aortic valve regurgitation. Echo showed an EF of 45-50% with mildly reduced systolic dysfunction. Patient was also using supplemental oxygen which has been weaned off to room air. IV Lasix has been been converted to p.o. and will be continued. Cardiology is recommending the patient consul
== END 2021-01-12 16:34 | disposition home or self-care (01) | DRG 291 ==
LOC: ANHED 10:23 → ANHIMU 11:00
PROVIDERS: Physician Assistant; Admitting Provider Internal Medicine; Emergency Provider Emergency Medicine; Visit Provider Internal Medicine
DX: I11.0 Hypertensive heart disease with heart failure (principal); I50.21 Acute systolic (congestive) heart failure; I48.92 Unspecified atrial flutter; I48.91 Unspecified atrial fibrillation; E78.5 Hyperlipidemia, unspecified; I35.1 Nonrheumatic aortic (valve) insufficiency; E87.6 Hypokalemia; T50.1X5A Adverse effect of loop [high-ceiling] diuretics, initial encounter; I42.9 Cardiomyopathy, unspecified; R74.01 Elevation of levels of liver transaminase levels; I34.0 Nonrheumatic mitral (valve) insufficiency; K21.9 Gastro-esophageal reflux disease without esophagitis; Z87.891 Personal history of nicotine dependence; Z98.42 Cataract extraction status, left eye; Z98.41 Cataract extraction status, right eye
CPT/HCPCS: 36415; 71046; 71275; 80048; 80053; 80074; 80076; 82948; 83880; 84443; 84484; 85025; 85027; 85610; 85730; 93005; 93306; 93308; 94640; 94762; 96361; 96372; 96374; 96375; 99285; A9270; G0378; J0696; J1650; J1940; J7030; Q9967

== ENCOUNTER 2021-03-31 05:58 | Emergency (ER) | payer MEDICARE, SELFPAY ==
[2021-03-31] VITALS (14 sets, daily range): BP systolic 131–162; BP diastolic 72–87; PULSE 65–78; RESP 12–44; TEMP 36.6–36.8; O2SAT 90–99
--- NOTE | ~2021-03-31 | XR_ITS ---
XR chest 2V DATE: 03/31/2021 06:54 INDICATION: Shortness of breath, weakness. Cardioversion yesterday. TECHNIQUE: AP and lateral views COMPARISON: 01/10/2021 CTA chest FINDINGS: Heart size appears within normal limits. Is aortic calcification and mild unfolding. There is pulmonary vascular congestion and redistribution. There is prominence of the fissures consis tent with subpleural edema. Small bilateral pleural effusions. Mild predominantly lower lung zone inf iltrates and/or atelectasis are noted bilaterally. Diffuse osteopenia. IMPRESSION: Congestive changes and mild predominantly lower lung infiltrate and/atelectasis Reviewed, dictated and finalized at location A. WORKER IMPRESSION: Congestive changes and mild predominantly lower lung infiltrate and /atelectasis
--- NOTE | 2021-03-31 06:05 | ECG_ITS ---
Measurements Intervals Broad Top Rate: 69 P: 74 SD: 159 QRS: 52 QRSD: 114 T: -2 QT: 426 QTc: 457 Interpretive Statements SINUS RHYTHM INCOMPLETE RIGHT BUNDLE BRANCH BLOCK DELAYED PRECORDIAL R/S TRANSITION BORDERLINE ST-T WAVE ABNORMALITY- ANT/INF LEADS BASELINE ARTIFACT- I, II, III, AVR, AVF, V1-V6 BORDERLINE ECG Electronically Signed On 03-31-2021 6:29:39 [employer] by Emerson Bravo D.O.
--- NOTE | 2021-03-31 06:32 | ED.SOB ---
HPI - SOB/Dyspnea General Chief Complaint: Shortness of Breath/Dyspnea <Albert Solano MD - Last Filed: 03/31/21 06:38> Stated Complaint: sob <Albert Solano MD - Last Filed: 03/31/21 06:38> Time Seen by Provider: 03/31/21 05:58 <Albert Solano MD - Last Filed: 03/31/21 06:38> History of Present Illness HPI Narrative: Patient is a 75-year-old female who presents to the ER with sudden onset shortness of breath. Woke up this morning and attempt to walk 10 feet to take her dog outside and she became extremely dyspneic and nauseated. Took about 5 minutes to recover. Symptoms returned with any attempted exertion. Patient underwent cardioversion yesterday at [facility] for atrial fibrillation. She sees Dr. Saldaña. She takes amiodarone as well as metoprolol and Eliquis. She also takes Lasix. Reports she has been having back and chest discomfort since the cardioversion yesterday morning. No history of MO. EMS arrived and patient was hypoxic 85% on room air. She was placed on supplemental oxygen. Patient reports she has not missed any doses of Eliquis. <Albert Solano MD - Last Filed: 03/31/21 06:38> Related Data Home Medications: Home Medications Medication Instructions Recorded Confirmed Daily Probiotic 1 cap PO DAILY 01/09/21 01/09/21 atorvastatin 20 mg PO DAILY 01/09/21 01/09/21 coenzyme Q10 [CoQ-10] 100 mg PO DAILY 01/09/21 01/09/21 escitalopram oxalate [Lexapro] 10 mg PO DAILY 01/09/21 01/09/21 amiodarone 200 mg PO DAILY 03/31/21 bimatoprost [Lumigan] drp 03/31/21 pantoprazole PO 03/31/21 <Albert Solano MD - Last Filed: 03/31/21 06:38> Allergies/Adverse Reactions: Allergies Allergy/AdvReac Type Severity Reaction Status Date / Time No Known Allergies Allergy Unknown Verified 03/31/21 06:07 <Albert Solano MD - Last Filed: 03/31/21 06:38> Review of Systems Review of Systems: All systems reviewed & are unremarkable except as noted in HPI and below <Albert Solano MD - Last Filed: 03/31/21 06:38> Constitutional: Constitutional: Denies chills, Denies fever(s) and Reports weakness <Albert Solano MD - Last Filed: 03/31/21 06:38> ENT: Denies nasal congestion and Denies sore throat <Albert Solano MD - Last Filed: 03/31/21 06:38> Cardiovascular: Cardiovascular: Reports chest pain, Denies rapid heart rate and Denies radiating jaw, neck or arm pain <Albert Solano MD - Last Filed: 03/31/21 06:38> Respiratory: Respiratory: Denies cough, Reports dyspnea and Denies wheezing <Albert Solano MD - Last Filed: 03/31/21 06:38> Gastrointestinal: Gastrointestinal: Denies abdominal pain, Reports nausea and Reports vomiting (Dry heaving) <Albert Solano MD - Last Filed: 03/31/21 06:38> Musculoskeletal: Musculoskeletal: Reports back pain and Denies muscle cramps <Albert Solano MD - Last Filed: 03/31/21 06:38> [facility] Past Medical History Medical History: Medical History (Updated 01/11/21 @ 09:23 by Lexii Trevino MD) Aortic valve regurgitation Depression Gastroesophageal reflux disease Glaucoma Hyperlipidemia Hypertension Nonrheumatic aortic (valve) insufficiency Nonrheumatic mitral valve regurgitation <Albert Solano MD - Last Filed: 03/31/21 06:38> Surgical History Surgical History: Surgical History (Updated 01/09/21 @ 20:56 by Kenyetta Hopper PA-C) History of cataract extraction History of dilation and curettage <Albert Solano MD - Last Filed: 03/31/21 06:38> Family History Family History: Family History (Updated 01/09/21 @ 20:57 by Kenyetta Hopper PA-C) Mother Pancreatic cancer Insulin dependent diabetes mellitus Father Coronary artery disease Sibling Coronary artery disease Sibling Atrial fibrillation <Albert Solano MD - Last Filed: 03/31/21 06:38> Social History Social History: Social History (Updated 01/09/21 @ 20:58 by Kenyetta Hopper PA-C) Social History:
[2021-03-31 06:42] LABS: Basophils Percent Auto 0.4 % (0.2-1.2); Eosinophils Percent Auto 0.1 % (0-4.4); Hematocrit 41.9 % (37.0-47.0); Hemoglobin 14.4 g/dL (12.0-15.0); Immature Granulocyte Absolute 0.06 K/mm3 (0.00-0.031); Immature Granulocyte Percent A 0.7 % (0-0.5); Lymphocytes Absolute Auto 0.94 K/mm3 (0.9-3.2); Lymphocytes Percent Auto 10.4 % (18.3-44.2); Mean Corpuscular HGB Conc 34.4 g/dl (32-36); Mean Corpuscular Hemoglobin 33.8 pg (26-34); Mean Corpuscular Volume 98.4 fl (80-100); Monocytes Absolute Auto 0.4 K/mm3 (0.1-0.6); Monocytes Percent Auto 4.4 % (2.6-8.5); Neutrophils Absolute Auto 7.6 K/mm3 (1.3-6.7); Platelet Count Result 183 k/mm3 (150-375); Red Blood Count 4.26 M/mm3 (4.2-5.4); Red Cell Distribution Width 13.6 % (11.5-14.5); White Blood Count 9.1 K/mm3 (4.5-10.0)
[2021-03-31 06:51] LABS: INR 1.2; Partial Thromboplastin Time 25.6 SECONDS (22.3-36.8); Prothrombin Time 14.7 Seconds (11.1-14.7)
[2021-03-31 06:57] LABS: Alanine Aminotransferase 90 U/L (4-35); Albumin Level 4.2 g/dL (3.5-5.1); Alkaline Phosphatase 77 U/L (38-126); Anion Gap 9 mmol/L (8-16); Aspartate Amino Transferase 109 U/L (14-36); Bilirubin,Total 2.5 mg/dL (0.2-1.3); Blood Urea Nitrogen 27 mg/dL (7-17); Calcium 9.3 mg/dL (8.4-10.2); Carbon Dioxide 29 mmol/L (22-30); Chloride 98 mmol/L (98-107); Estimated CRCL calculation 54 ml/min; Estimated Glomerular Filt Rate > 60; Glucose 169 mg/dL (65-110); Potassium 3.8 mmol/L (3.4-5.0); Sodium 136 mmol/L (137-145)
[2021-03-31 07:06] LABS: NT Pro B Type Natriuretic Pept 1390 pg/mL (5-100); Troponin I < 0.012 ng/mL (0.000-0.034)
[2021-03-31] MEDS: FUROSEMIDE INJ 40 MG/4 ML VIAL IV PUSH (07:50)
[2021-03-31 09:50] LABS: Troponin I < 0.012 ng/mL (0.000-0.034)
[2021-03-31 11:45] LABS: Alveolar/Arterial O2 Gradient 41.4 mmHg; Base Excess ABG 5.8 mEq/l (+/-2.0); Fractional Inspired Oxygen 21 %; HCO3 ABG 29.5 mEq/l (22.0-26.0); Oxygen Content ABG 18.3 %vol (16.0-22.0); Oxyhemoglobin 90.7 % THb (90.0-100.0); PCO2 ABG 39.8 mmHg (35.0-45.0); PO2 ABG 60.7 mmHg (80.0-100.0); PO2 FiO2 Ratio Arterial Blood 2.89 %; Total Hemoglobin 14.4 g/dL (12.0-18.0); pH ABG 7.488 (7.350-7.450)
[2021-03-31 11:46] LABS: Device ROOM AIR; Modified Allen's Test Pass; Site Drawn RIGHT RADIAL
== END 2021-03-31 13:41 | disposition home or self-care (01) ==
PROVIDERS: Emergency Medicine; Emergency Provider Emergency Medicine
DX: I11.0 Hypertensive heart disease with heart failure (principal); I50.9 Heart failure, unspecified; I35.1 Nonrheumatic aortic (valve) insufficiency; I34.0 Nonrheumatic mitral (valve) insufficiency; E78.5 Hyperlipidemia, unspecified; H40.9 Unspecified glaucoma; K21.9 Gastro-esophageal reflux disease without esophagitis; Z79.01 Long term (current) use of anticoagulants; Z98.49 Cataract extraction status, unspecified eye; Z87.891 Personal history of nicotine dependence; I45.10 Unspecified right bundle-branch block; R94.31 Abnormal electrocardiogram [ECG] [EKG]
CPT/HCPCS: 36415; 36600; 71046; 80053; 82805; 83880; 84484; 85025; 85610; 85730; 93005; 96374; 99284; J1940

== ENCOUNTER 2022-06-12 22:20 | Emergency (ER) | payer MEDICARE, SELFPAY ==
--- NOTE | ~2022-06-12 | CT_ITS ---
EXAMINATION: CT cervical spine wo con DATE: 06/13/2022 00:37 INDICATION: Head injury. TECHNIQUE: Computed tomography (CT) of the cervical spine was performed without intravenous contrast. Automated exposure control and iterative reconstruction technique were employed. The dose-length pro duct was 368.62 mGy-cm. COMPARISON: None FINDINGS: There are thyroid nodules measuring up to 13 mm, likely not clinically significant. There i s mild emphysema. There is 5 degrees levocurvature of cervical spine. Vertebral body heights are norm al. There is a benign bone island in C2. There is mildly decreased disc height at C5-C6 and moderatel y decreased disc height at C6-C7. The following disc levels are specifically discussed: C2-C3: There is no uncovertebral joint osteoarthritis. There is moderate bilateral facet joint osteoa rthritis. There is no neural foraminal stenosis. There is no central canal stenosis. C3-C4: There is mild bilateral uncovertebral joint osteoarthritis. There is severe right and mild lef t facet joint osteoarthritis. There is no neural foraminal stenosis. There is no central canal stenos is. C4-C5: There is no uncovertebral joint osteoarthritis. There is no facet joint osteoarthritis. There is mild right and severe left neural foraminal stenosis. There is no central canal stenosis. C5-C6: There is mild bilateral uncovertebral joint osteoarthritis. There is severe bilateral facet sandi int osteoarthritis. There is mild left neural foraminal stenosis. There is mild central canal stenosi s. C6-C7: There is mild right and severe left uncovertebral joint osteoarthritis. There is mild bilatera l facet joint osteoarthritis. There is mild left neural foraminal stenosis. There is mild central can al stenosis. C7-T1: There is no uncovertebral joint osteoarthritis. There is severe bilateral facet joint osteoart hritis. There is mild left neural foraminal stenosis. There is no central canal stenosis. IMPRESSION: 1. No fracture. 2. Moderate cervical spondylosis. 3. Mild emphysema. Reviewed, dictated and finalized at location A.
--- NOTE | ~2022-06-12 | CT_ITS ---
EXAMINATION: CT brain wo con DATE: 06/13/2022 00:37 INDICATION: Head injury. TECHNIQUE: Computed tomography (CT) of the head was performed without intravenous contrast. The mA wa s adjusted according to patient size. Iterative reconstruction technique was employed. The dose-lengt h product was 605.33 mGy-cm. COMPARISON: None FINDINGS: There are scattered areas of low attenuation in the cerebral white matter. There is no intr acranial hemorrhage, acute infarction, or abnormal intracranial mass lesion. The ventricles are mary l in size. There are likely changes of left ocular lens replacement surgery. There is mild mucosal th ickening in the ethmoid sinuses. The mastoid air cells are normal. IMPRESSION: 1. Mild nonspecific cerebral white matter disease, which likely represents chronic small vessel ische vasquez disease. Reviewed, dictated and finalized at location A. IMPRESSION: 1. Mild nonspecific cerebral white matter disease, which likely represents fine unhairer nichole small vessel ischemic disease.
[2022-06-12 22:25] VITALS: BP 108/63; PULSE 54; RESP 23; TEMP 36.9; O2SAT 91
--- NOTE | 2022-06-12 22:31 | ED.GENADULT ---
HPI - General Adult General Chief complaint: Fall <Tito Lindsay MD - Last Filed: 06/17/22 07:42> Stated complaint: etoh, fall <Tito Lindsay MD - Last Filed: 06/17/22 07:42> History of Present Illness HPI narrative: 77-year-old female presenting to the emergency department for evaluation after having a ground-level fall at her home. Patient admits that she has been drinking heavily today. Patient had a ground-level fall in her bathroom that was detected by her Apple Watch. EMS and family were notified. Upon arrival to the ED patient is denying any complaints at this time. Patient did make statements of not wanting to live to EMS. Patient denies any complaints of pain or injury. Patient does admit to drinking alcohol. Family was told a few weeks ago that the patient does have new diagnosis of cardiomegaly and that this has worsened her depression. <Tito Lindsay MD - Last Filed: 06/17/22 07:42> Related Data Home medications: Home Medications Medication Instructions Recorded Confirmed Daily Probiotic 1 cap PO DAILY 01/09/21 01/09/21 atorvastatin 20 mg tablet 20 mg PO DAILY 01/09/21 01/09/21 coenzyme Q10 100 mg capsule 100 mg PO DAILY 01/09/21 01/09/21 (CoQ-10) escitalopram oxalate 10 mg tablet 10 mg PO DAILY 01/09/21 01/09/21 (Lexapro) bimatoprost 0.01 % eye drops drp 03/31/21 (Lumigan) pantoprazole 40 mg tablet,delayed PO 03/31/21 release empagliflozin 10 mg tablet mg 06/12/22 (Jardiance) olmesartan 40 mg tablet mg 06/12/22 potassium chloride 10 mEq meq PO 06/12/22 tablet,extended release <Tito Lindsay MD - Last Filed: 06/17/22 07:42> Allergies/adverse reactions: Allergies Allergy/AdvReac Type Severity Reaction Status Date / Time No Known Allergies Allergy Unknown Verified 03/31/21 06:07 <Tito Lindsay MD - Last Filed: 06/17/22 07:42> [facility] Past Medical History Medical History: Medical History (Updated 06/14/22 @ 00:00 by Background Daemon) Aortic valve regurgitation Depression Gastroesophageal reflux disease Glaucoma Hyperlipidemia Hypertension Nonrheumatic aortic (valve) insufficiency Nonrheumatic mitral valve regurgitation <Tito Lindsay MD - Last Filed: 06/17/22 07:42> Surgical History Surgical History: Surgical History (Updated 01/09/21 @ 20:56 by Kenyetta Hopper PA-C) History of cataract extraction History of dilation and curettage <Tito Lindsay MD - Last Filed: 06/17/22 07:42> Family History Family History: Family History (Updated 01/09/21 @ 20:57 by Kenyetta Hopper PA-C) Mother Pancreatic cancer Insulin dependent diabetes mellitus Father Coronary artery disease Sibling Coronary artery disease Sibling Atrial fibrillation <Tito Lindsay MD - Last Filed: 06/17/22 07:42> Social History Social History: Social History (Updated 01/09/21 @ 20:58 by Kenyetta Hopper PA-C) Social History: Surrogate decision maker: Akira De Oliveira, donna. Code status: Full code. Smoking packs per day: 1 Smoking cigarettes per day: 20.0 Years smoked: 20 Smoking pack-years: 20.00 Smoking status: Former smoker Tobacco type: cigarettes Alcohol intake: current Drinks per week: 7 Alcohol use details: 1 to 2 glasses of wine in the evenings. Substance use: never Additional living arrangements comments: The patient lives in her own home in [place]. She has a dog at home. One adult son. 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 <Tito Lindsay MD - Last Filed: 06/17/22 07:42> Course Course Emergency Course: 77-year-old female presented to the ED for evaluation after having a ground-level fall while intoxicated. Patient had negative head and cervical spine CTs. Patient was highly intoxicated and combative upon arrival to the ED but as she has metabolized her alcohol she has been more appropriate. Patient is afebrile
--- NOTE | 2022-06-12 22:41 | PC.NURSE ---
Patient states that she does not know why she is here and does not feel good. Patient states she feels drunk.
--- NOTE | 2022-06-12 22:51 | PC.NURSE ---
Patients family member arrives at bedside.
[2022-06-12 23:00] LABS: Basophils Percent Auto 0.5 % (0.2-1.2); Eosinophils Absolute Auto 0.2 K/mm3 (0-0.3); Eosinophils Percent Auto 2.9 % (0-4.4); Hematocrit 41.2 % (37.0-47.0); Hemoglobin 14.5 g/dL (12.0-15.0); Immature Granulocyte Absolute 0.02 K/mm3 (0.00-0.031); Immature Granulocyte Percent A 0.3 % (0-0.5); Lymphocytes Absolute Auto 2.64 K/mm3 (0.9-3.2); Lymphocytes Percent Auto 40.3 % (18.3-44.2); Mean Corpuscular HGB Conc 35.2 g/dl (32-36); Mean Corpuscular Hemoglobin 34.4 pg (26-34); Mean Corpuscular Volume 97.6 fl (80-100); Mean Platelet Volume 10.2 fl (7.4-10.4); Monocytes Absolute Auto 0.6 K/mm3 (0.1-0.6); Monocytes Percent Auto 9.8 % (2.6-8.5); Neutrophils Percent Auto 46.2 % (45.5-73.1); Platelet Count Result 203 k/mm3 (150-375); Red Blood Count 4.22 M/mm3 (4.2-5.4); Red Cell Distribution Width 13.1 % (11.5-14.5); White Blood Count 6.6 K/mm3 (4.5-10.0)
[2022-06-12 23:11] VITALS: PULSE 57; RESP 18
[2022-06-12 23:15] VITALS: PULSE 57; RESP 19
[2022-06-12 23:24] LABS: Acetaminophen < 10 ug/mL (10-30); Ethanol 277 mg/dL (<10); Salicylate < 1.0 mg/dL (2-20)
[2022-06-12 23:25] LABS: Alanine Aminotransferase 44 U/L (6-35); Albumin Level 4.2 g/dL (3.5-5.1); Alkaline Phosphatase 96 U/L (38-126); Anion Gap 13 mmol/L (8-16); Aspartate Amino Transferase 69 U/L (14-36); Bilirubin,Total 1.6 mg/dL (0.2-1.3); Blood Urea Nitrogen 10 mg/dL (7-17); Calcium 8.8 mg/dL (8.4-10.2); Carbon Dioxide 21 mmol/L (22-30); Chloride 105 mmol/L (98-107); Estimated CRCL calculation 53 ml/min; Estimated Glomerular Filt Rate > 60; Glucose 114 mg/dL (65-110); Potassium 3.2 mmol/L (3.4-5.0); Sodium 139 mmol/L (137-145)
[2022-06-12 23:30] VITALS: PULSE 62; RESP 16
[2022-06-12] MEDS: POTASSIUM CHLORIDE 20 MEQ PACKET (FOR LIQUID) 40 MEQ PO (23:32)
[2022-06-12 23:40] LABS: Magnesium 2.3 mg/dL (1.6-2.3)
[2022-06-13] VITALS (14 sets, daily range): BP systolic 78–153; BP diastolic 47–73; PULSE 58–68; RESP 14–21; O2SAT 93–100
[2022-06-13 03:21] LABS: Influenza A QL RT-PCR Negative (Negative); Influenza B QL RT-PCR Negative (Negative); RSV RNA, RT-PCR Negative (Negative); SARS-CoV-2 RNA PCR Negative
[2022-06-13] MEDS: SODIUM CHLORIDE 0.9% IV 1,000 ML 999 ML IV CONT (04:22)
--- NOTE | 2022-06-13 04:31 | PC.NURSE ---
When giving the patient her bag of NS patient awoke and was cooperative
[2022-06-13 05:27] LABS: Appearance Urine Clear (Clear); Bilirubin Urine Negative (Negative); Blood Urine Negative (Negative); Color Urine Yellow (Yellow); Glucose Urine UA 3+ mg/dL (Negative); Ketones Urine Negative (Negative); Leukocyte Esterase Ur Negative LEU/UL (Negative); Nitrate Urine Negative (Negative); Protein Urine Negative (Negative); Specific Grav Ur 1.017 (1.001-1.035); Urobilinogen Urine 0.2 mg/dL (<2.0)
[2022-06-13 05:34] LABS: Add Urine Microscopic? NO
[2022-06-13 08:23] LABS: Ethanol 52 mg/dL (<10)
--- NOTE | 2022-06-13 10:27 | PC.NURSE ---
[place] here for pt eval at this time.
== END 2022-06-13 11:28 | disposition home or self-care (01) ==
PROVIDERS: Emergency Provider Emergency Medicine
DX: S00.93XA Contusion of unspecified part of head, initial encounter (principal); F32.A Depression, unspecified; Z20.822 Contact with and (suspected) exposure to COVID-19; E78.5 Hyperlipidemia, unspecified; I10 Essential (primary) hypertension; I51.7 Cardiomegaly; I35.1 Nonrheumatic aortic (valve) insufficiency; I34.0 Nonrheumatic mitral (valve) insufficiency; H40.9 Unspecified glaucoma; K21.9 Gastro-esophageal reflux disease without esophagitis; Z98.49 Cataract extraction status, unspecified eye; Z87.891 Personal history of nicotine dependence; Z79.899 Other long term (current) drug therapy; Z79.01 Long term (current) use of anticoagulants; Z79.84 Long term (current) use of oral hypoglycemic drugs; R90.82 White matter disease, unspecified; M47.812 Spondylosis without myelopathy or radiculopathy, cervical region; J43.9 Emphysema, unspecified; W18.30XA Fall on same level, unspecified, initial encounter
CPT/HCPCS: 36415; 70450; 72125; 80053; 80307; 81003; 83735; 84443; 85025; 87637; 96360; 99284; A9270; J7030

== ENCOUNTER 2022-11-26 13:27 | Outpatient (NON) | payer MEDICARE, SELFPAY ==
[2022-11-26 14:16] LABS: Anion Gap 6 mmol/L (8-16); Blood Urea Nitrogen 18 mg/dL (7-17); Calcium 8.9 mg/dL (8.4-10.2); Carbon Dioxide 28 mmol/L (22-30); Chloride 102 mmol/L (98-107); Estimated Glomerular Filt Rate > 60; Glucose 109 mg/dL (65-110); Potassium 3.9 mmol/L (3.4-5.0); Sodium 136 mmol/L (137-145)
== END 2022-11-26 13:28 | disposition home or self-care (01) ==
PROVIDERS: Internal Medicine
DX: I48.91 Unspecified atrial fibrillation (principal); I50.21 Acute systolic (congestive) heart failure
CPT/HCPCS: 80048

== ENCOUNTER 2023-04-14 08:30 | Outpatient (RCR) | payer MEDICARE, SELFPAY ==
[2022-12-17 11:41] VITALS: PULSE 74
== END 2023-04-14 23:59 | disposition home or self-care (01) ==
LOC: ANHCPREHAB 08:30
PROVIDERS: PCP Internal Medicine; Visit Provider Internal Medicine
DX: Z95.2 Presence of prosthetic heart valve (principal)
CPT/HCPCS: 93798

== ENCOUNTER 2023-04-20 08:30 | Outpatient (RCR) | payer MEDICARE, SELFPAY ==
[2023-04-17 00:02] VITALS: PULSE 74
== END 2023-04-20 10:01 | disposition home or self-care (01) ==
LOC: ANHCPREHAB 08:30
PROVIDERS: Visit Provider Internal Medicine
DX: Z95.2 Presence of prosthetic heart valve (principal)
CPT/HCPCS: 93798

== ENCOUNTER 2024-02-03 11:38 | Emergency (ER) | payer MEDICARE, SELFPAY ==
--- NOTE | 2024-02-03 12:00 | ED_ITS ---
HPI - Ear Problem General Chief complaint: Ear Stated complaint: rt earache Time Seen by Provider: 02/03/24 12:15 Source: patient Mode of arrival: ambulatory Limitations: no limitations History of Present Illness HPI Narrative: Aster is an 78-year-old female patient presenting to the clinic today with complaints of right ear pain for the past 24 hours. She denies any fever, chills, body aches. Denies any cough but does have some nasal congestion. Reports the pain to the posterior ear over the mastoid, cheek, as well as down into right cervical area. Has been taking Advil which helped with the pain Related Data Home Medications Medication Instructions Recorded Confirmed atorvastatin 20 mg tablet 20 mg PO DAILY 01/09/21 02/03/24 coenzyme Q10 100 mg capsule 100 mg PO DAILY 01/09/21 02/03/24 (CoQ-10) bimatoprost 0.01 % eye drops 1 drp EACH EYE DAILY 03/31/21 02/03/24 (Lumigan) pantoprazole 40 mg tablet,delayed 40 mg PO DAILY 03/31/21 02/03/24 release empagliflozin 10 mg tablet 10 mg PO DAILY 02/03/24 02/03/24 (Jardiance) spironolactone 25 mg tablet 25 mg PO DAILY 02/03/24 02/03/24 Allergies Allergy/AdvReac Type Severity Reaction Status Date / Time No Known Allergies Allergy Unknown Verified 02/03/24 12:08 Review of Systems Review of Systems: Pertinent positives per HPI. Patient denies any fever, chills, rash, headache, visual changes, dizziness, cough, runny nose, sore throat, shortness of breath, chest pain, palpitations, nausea, vomiting, diarrhea, constipation, abdominal pain, or any urinary issues. [facility] Past Medical History Medical History Aortic valve regurgitation Depression Gastroesophageal reflux disease Glaucoma Hyperlipidemia Hypertension Nonrheumatic aortic (valve) insufficiency Nonrheumatic mitral valve regurgitation Surgical History Surgical History History of cataract extraction History of dilation and curettage Family History Family History Mother Pancreatic cancer Insulin dependent diabetes mellitus Father Coronary artery disease Sibling Coronary artery disease Sibling Atrial fibrillation Social History Social History Social History: Surrogate decision maker: Aikra De Oliveira, son. Code status: Full code. Smoking packs per day: 1 Smoking cigarettes per day: 20.0 Years smoked: 30 Smoking pack-years: 30.00 Smoking status: Former smoker Tobacco type: cigarettes Second hand tobacco smoke exposure: No Alcohol intake: unknown Drinks per week: 7 Alcohol use details: 1 to 2 glasses of wine in the evenings. Substance use: unknown Additional living arrangements comments: The patient lives in her own home in [place]. She has a dog at home. One adult son. 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 Spiritual care concerns: No Comments At the time of my signature, I reviewed and agree with the nursing past medical, surgical, social, and family history. There is no relevant family history pertinent to the patient complaint. Exam Narrative: General: Well-developed, well nourished, in no apparent distress Head: Normocephalic, atraumatic, no redness or swelling over mastoids, tenderness to palpation over the posterior mastoid on right Eyes: Pupils equally round and reactive to light bilaterally, EOM intact, sclera and conjunctive clear, no discharge, lids normal Ears: TMs intact and clear, mild pressure noted behind the right TM, right ear canal very mildly red, left ear canal clear, no drainage, grossly hearing normal. Nose: Nares patent, clear discharge, no inflammation, no sinus tenderness. Mouth: Oropharynx without lesions or masses, good dentition, MMM. Neck: Supple, trachea midline, no enlargement of anterior or posterior cervical nodes, no thyroid masses or goiter palpable. Cardio: Regular rate and rhythm, s1 and s2 normal, no murmur appreciated. Resp: Clear to auscultation bilaterally anteriorly and posteriorly, no rhonchi, rales, wheezing or rubs Course Course Emergency Course: Portions of this record may have been created with voice recognition software. Level of Care: Express Care Visit Vital Signs Vital signs: Vital Signs Temperature 36.5 C 02/03/24 12:03 Pulse Rate 68 02/03/24 12:03 Respiratory Rate 16 02/03/24 12:03 Blood Pressure 125/74 02/03/24 12:03 Pulse Oximetry 98 02/03/24 12:03 Temperature 36.5 C 02/03/24 12:03 Pulse Rate 68 02/03/24 12:03 Respiratory Rate 16 02/03/24 12:03 Blood Pressure 125/74 02/03/24 12:03 Pulse Oximetry 98 02/03/24 12:03 Vital signs reviewed Medical Decision Making MDM Narrative Medical decision making narrative: At the time of visit patient is resting comfortably on the exam table. Patient appears to be nontoxic. Plan: I suspect patient has right otitis externa with possible eustachian tube dysfunction. Will send in prescription for Cortisporin ear drops and recommend using Flonase and [id number] antihistamines. Supportive measures were discussed with the patient and they voiced understanding discharge instructions and agrees to treatment plan. Return precautions reviewed Differential Diagnosis Differential Diagnosis: Otitis media, otitis externa, eustachian tube dysfunction, cerumen impaction, upper respiratory infection, serous otitis, mastoiditis Vital Signs Vital Signs: Vital Signs Temperature 36.5 C 02/03/24 12:03 Pulse Rate 68 02/03/24 12:03 Respiratory Rate 16 02/03/24 12:03 Blood Pressure 125/74 02/03/24 12:03 Pulse Oximetry 98 02/03/24 12:03 Temperature 36.5 C 02/03/24 12:03 Pulse Rate 68 02/03/24 12:03 Respiratory Rate 16 02/03/24 12:03 Blood Pressure 125/74 02/03/24 12:03 Pulse Oximetry 98 02/03/24 12:03 Discharge Plan Discharge Clinical Impression: Acute otalgia, Otitis externa Patient Disposition: Home, Self-Care Condition: Stable Instructions: Antibiotic Form, Swimmer's Ear (ED), Earache (ED) Additional Instructions: Take any prescribed medications only as directed, Tylenol/motrin as needed for pain Instill ear drops as prescribed Be use Flonase and [id number] antihistamine such as Zyrtec or Claritin May use heating pad to alleviate pain If you get recurrent ear infections it may be warranted to follow up with ENT. Follow up with your PCP in 3-5 days if symptoms persist. Prescriptions: New [id number] 3.5-10,000-1 mg/mL-unit/mL-% drops,suspension 4 drp RIGHT EAR Q8H 7 Days Qty: 10 0RF No Action Jardiance 10 mg tablet 10 mg PO DAILY spironolactone 25 mg tablet 25 mg PO DAILY atorvastatin 20 mg tablet 20 mg PO DAILY coenzyme Q10 [CoQ-10] 100 mg Capsule 100 mg PO DAILY pantoprazole 40 mg Tablet,Delayed Release (Dr/Ec) 40 mg PO DAILY Lumigan 0.01 % drops 1 drp EACH EYE DAILY aspirin [Children's Aspirin] 81 mg Tablet,Chewable 81 mg PO DAILY@0800 Qty: 30 0RF furosemide 40 mg Tablet 40 mg PO BID@0800,1600 Qty: 30 0RF metoprolol succinate [Toprol XL] 25 mg Tablet Extended Release 24 Hr 25 mg PO QAM Qty: 30 0RF losartan 100 mg Tablet 100 mg PO DAILY Qty: 30 0RF escitalopram oxalate 10 mg Tablet 20 mg PO DAILY Qty: 0 0RF Follow-up/Referrals: Drew,Ricki Hollis [Other] Time of Disposition: 12:26 Quality NIHSS Nursing Documentation ED NIHSS nursing documentation: reviewed/agree
[2024-02-03 12:03] VITALS: BP 125/74; PULSE 68; RESP 16; TEMP 36.5; O2SAT 98
== END 2024-02-03 12:32 | disposition home or self-care (01) ==
PROVIDERS: Emergency Provider Nurse Practitioner Family
DX: H60.91 Unspecified otitis externa, right ear (principal); Z87.891 Personal history of nicotine dependence; K21.9 Gastro-esophageal reflux disease without esophagitis; I10 Essential (primary) hypertension; E78.5 Hyperlipidemia, unspecified; H40.9 Unspecified glaucoma; I08.0 Rheumatic disorders of both mitral and aortic valves
CPT/HCPCS: 99213; G0463